=== PATIENT | male | born 1955 | race Caucasian/White ===

== ENCOUNTER → 2018-08-02 | Outpatient (CLI) | payer MEDICARE ==
[2018-08-02 17:35] LABS: Blood Urea Nitrogen 19 mg/dL (9-20)
--- NOTE | 2018-08-02 22:44 | CT ---
EXAMINATION TYPE: CT ChestAbdPelvis w con DATE OF EXAM: 08/02/2018 COMPARISON: Outside MRI abdomen report July 18, 2018 HISTORY: Right sided abdomen and back pain. Liver cancer, observe for metastases per order. History o f hepatitis C. History of abnormal MRI. CT DLP: 869 mGycm. Automated Exposure Control. For Dose Reduction was Utilized. CONTRAST: CT scan of the thorax, abdomen and pelvis is performed with oral and with IV Contrast, patient inject ed with 100ml mL of Isovue 300. FINDINGS: LUNGS: There is mild to moderate underlying emphysematous change. No suspicious parenchymal nodule or mass is present. No pleural effusion or pneumothorax is seen. Tracheobronchial tree is patent. MEDIASTINUM: There are no greater than 1 cm hilar or mediastinal lymph nodes. No cardiomegaly or pe ricardial effusion is seen. Coronary artery calcification is present which is noted marker for coron shandra artery disease. OTHER: Mild degree of bilateral gynecomastia is identified. LIVER/GB: Liver is normal in size, there are numerous scattered heterogeneous enhancing masses that d emonstrate washout. Largest in caudate lobe measures roughly 5.2 x 4.9 cm axial image 59. There are s uspected abnormal superior lymph nodes in the zain hepatis with mass effect on the splenic vein whic h is deviated anteriorly. There is suspected thrombus at the portal confluence as there is persistent hypodensity axial image 58 noted on delayed images. PANCREAS: No significant abnormality is seen. SPLEEN: Spleen is normal in size with anterior calcification axial image 55 noted. ADRENALS: No significant abnormality is seen. KIDNEYS: No significant abnormality is seen. BOWEL: The contrast does not reach colonic level. There is no suspicious small or large bowel dilatat ion seen GENITAL ORGANS: No gross abnormality seen. LYMPH NODES: There is abnormal retroperitoneal adenopathy. For reference there is aortocaval lymph no de measuring 3.5 x 3.1 cm axial image 66 just below level of renal arteries OSSEOUS STRUCTURES: Slight S-shaped scoliosis is seen. Osseous structures are demineralized. There is multilevel disc space narrowing and vacuum disc phenomenon in the lumbar spine. OTHER: Mild to moderate calcified plaque of distal abdominal aorta extending into branch vessels is p resent. IMPRESSION: Suspect multifocal hepatocellular carcinoma as suspected on outside MRI report. There is zain hepatic adenopathy and large retroperitoneal lymph node. There is confirmation of thrombus in p ortal vein confluence. Metastatic disease felt less likely as detailed on outside report. Imaging ariana ded sampling of the liver can be performed to confirm if desired.
== END | disposition home or self-care (01) ==
LOC: RADCTMAIN 16:41
PROVIDERS: ATTEND Internal Medicine Hematology & Oncology
DX: I81 Portal vein thrombosis (principal); R59.0 Localized enlarged lymph nodes; C22.0 Liver cell carcinoma
CPT/HCPCS: 82565; 84520; 71260; 74177; 36415; Q9967

== ENCOUNTER 2018-08-14 07:42 | Day surgery (SDC) | payer MEDICARE ==
[2018-08-14] MEDS ORDERED: ALPRAZolam 0.5 MG TAB PO STA (08:21)
[2018-08-14 08:46] LABS: Mean Platelet Volume 7.4; Platelet Count 195 k/uL (150-450)
[2018-08-14 09:06] LABS: INR 1.1 (<1.2); Prothrombin Time 11.1 sec (9.0-12.0)
--- NOTE | 2018-08-14 09:20 | US ---
Ultrasound limited liver HISTORY: Abnormal CT Liver is diffusely heterogeneous. There is a focal mass in the left lobe of the liver but there appea rs to be bowel anterior to this lesion. Patient will be taken to CT scan for biopsy of the right lobe liver mass which is not as well defined by ultrasound. IMPRESSION: 1. Limited ultrasound demonstrating diffuse heterogeneity of the liver. Patient will undergo biopsy w ith CT guidance.
[2018-08-14] MEDS: HYDROmorphone 1 MG/ML 1 ML SYRINGE IVP STA ×2 (09:29→09:54)
[2018-08-14 10:29] VITALS: RESP 16
--- NOTE | 2018-08-14 12:29 | CT ---
EXAMINATION TYPE: CT biopsy liver DATE OF EXAM: 08/14/2018 COMPARISON: CT 08/02/2018 HISTORY: Numerous liver masses CT DLP: 929mGycm PROCEDURE: The risks, applications, benefits and alternatives, were discussed with the patient and questions wer e answered. Informed consent was obtained. The patient was placed supine on the fluoroscopic table, prepped and draped in the usual sterile fashion. A 25-gauge system was utilized with direct passage of the needle into the right lobe liver lesion und er CT guidance. Samples were obtained with fine needle aspiration. Pathology confirmed adequate french ple. Additionally, an 18-gauge core sample was obtained. The patient was stable throughout procedure and remained stable upon discharge from radiology. All e lements of maximal barrier and sterile technique were utilized. IMPRESSION: 1. Successful right lobe liver mass fine needle aspiration and core biopsy under CT guidance.
[2018-08-14 13:39] VITALS: BP 139/84; PULSE 89; TEMP 98.2
== END 2018-08-14 14:00 | disposition home or self-care (01) ==
LOC: RADPROMAIN 07:42
PROVIDERS: ATTEND Internal Medicine Hematology & Oncology
DX: C22.0 Liver cell carcinoma (principal)
CPT/HCPCS: 88305; 88173; 85049; 85610; 88342; 88307; 88341; 36415; 76705; 47000; 77012; J1170; 10022

== ENCOUNTER 2018-09-05 14:19 | Inpatient (IN) | payer MEDICARE ==
[2018-09-05] MEDS ORDERED: LABETALOL 5 MG/ML VIAL MDV IVP STA ×2 (15:05→16:39)
--- NOTE | 2018-09-05 15:12 | ED ---
General Adult HPI - General Chief complaint: Recheck/Abnormal Lab/Rx Stated complaint: Hypertensive Time Seen by Provider: 09/05/18 14:36 Source: patient, family, RN notes reviewed Mode of arrival: ambulatory Limitations: no limitations - History of Present Illness Initial comments: Patient is a pleasant 63-year-old male presenting to the emergency department with hypertension. Patient does have chronic hypertension. Patient was started on medication for hepatocellular carcinoma a couple of weeks ago. Patient's blood pressure generally will run around 180/90. Blood pressure has been running high the last couple of weeks. Patient had his Cozaar increased from 50 mg daily to 100 mg daily. Blood pressure at home has been running as high as 200/120. They did discuss this with practitioner with oncology who recommended they come to emergency department for blood pressure control. Patient otherwise feels fine and has no complaints. No chest pain. No weakness. No abdominal pain. - Related Data Home Medications Medication Instructions Recorded Confirmed Ranitidine HCl 150 mg PO BID 08/08/18 09/05/18 HYDROmorphone [Dilaudid] 2 mg PO Q3H PRN 09/05/18 09/05/18 Lenvatinib Mesylate [Lenvima] 16 mg PO HS 09/05/18 09/05/18 Losartan Potassium [Cozaar] 100 mg PO DAILY 09/05/18 09/05/18 Morphine Sulfate ER [Ms Contin] 15 mg PO Q12HR PRN 09/05/18 09/05/18 Prochlorperazine [Compazine] 10 mg PO Q6H PRN 09/05/18 09/05/18 Sennosides [Senna] 25.8 mg PO HS 09/05/18 09/05/18 Allergies Allergy/AdvReac Type Severity Reaction Status Date / Time acetaminophen AdvReac Unknown Verified 09/05/18 14:52 Review of Systems ROS Statement: Those systems with pertinent positive or pertinent negative responses have been documented in the HPI. ROS Other: All systems not noted in ROS Statement are negative. Constitutional: Denies: fever Eyes: Denies: eye pain ENT: Denies: ear pain Respiratory: Denies: cough Cardiovascular: Denies: chest pain Endocrine: Denies: fatigue Gastrointestinal: Denies: abdominal pain Genitourinary: Denies: dysuria Musculoskeletal: Denies: back pain Skin: Denies: rash Neurological: Denies: headache, weakness, confusion Past Medical History Past Medical History: GERD/Reflux, Hypertension Additional Past Medical History / Comment(s): broke back and neck in 2002 - chronic pain History of Any Multi-Drug Resistant Organisms: None Reported Past Surgical History: Back Surgery Additional Past Surgical History / Comment(s): colonoscopy/endoscoopy - 2005, neck surgery 2002 Past Anesthesia/Blood Transfusion Reactions: No Reported Reaction Past Psychological History: No Psychological Hx Reported Smoking Status: Former smoker Past Alcohol Use History: Abuse - Past Family History Mother Family Medical History: Cancer Additional Family Medical History / Comment(s): multiple myloma General Exam Limitations: no limitations General appearance: alert, in no apparent distress Head exam: Present: atraumatic Eye exam: Present: normal appearance, PERRL, EOMI. Absent: nystagmus ENT exam: Present: normal oropharynx Neck exam: Present: normal inspection Respiratory exam: Present: normal lung sounds bilaterally Cardiovascular Exam: Present: regular rate, normal rhythm Expanded Peripheral pulses: 2+: Radial (R), Radial (L) GI/Abdominal exam: Present: soft. Absent: tenderness Extremities exam: Present: normal inspection. Absent: pedal edema, calf tenderness Neurological exam: Present: alert, CN II-XII intact. Absent: motor sensory deficit Expanded Neurological exam: Present: protecting the airway Speech: Present: fluid speech Sensory exam: Upper Extremity Light Touch: Normal, Lower Extremity Light Touch: Normal Motor strength exam: RUE: 5, LUE: 5, RLE: 5, LLE: 5 Eye Response: (4) open spontaneously Motor Response: (6) obeys commands Verbal Response: (5) oriented Psychiatric exam: Present: normal affect, normal mood Skin exam: Present: normal color Course Vital Signs 09/05/18 09/05/18 09/05/18 14:24 15:07 15:10 Temperature 97.4 F L Pulse Rate 89 81 Respiratory 18 9 L Rate Blood Pressure 196/119 189/110 O2 Sat by Pulse 97 95 98 Oximetry 09/05/18 09/05/18 09/05/18 16:10 16:20 16:30 Temperature Pulse Rate 72 74 Respiratory 17 18 Rate Blood Pressure 192/114 190/108 186/111 O2 Sat by Pulse 96 97 Oximetry 10/17/18 10/17/18 10/17/18 16:40 16:50 17:00 Temperature Pulse Rate 76 72 77 Respiratory 13 18 10 L Rate Blood Pressure 205/145 195/111 188/168 O2 Sat by Pulse 98 96 98 Oximetry 09/05/18 09/05/18 09/05/18 17:10 17:20 17:30 Temperature Pulse Rate 73 74 Respiratory 14 17 Rate Blood Pressure 188/106 200/111 182/105 O2 Sat by Pulse 98 97 Oximetry 09/05/18 09/05/18 09/05/18 18:00 18:30 19:00 Temperature Pulse Rate 73 73 84 Respiratory 17 18 18 Rate Blood Pressure 175/106 150/99 160/91 O2 Sat by Pulse 96 96 96 Oximetry - Reevaluation(s) Reevaluation #1: 09/05/18 20:04 Patient reevaluated and remained symptom-free. Blood pressure has been labile. Despite several medications blood pressure is currently 192/106. Case was discussed earlier with Dr. Morales, who will admit for Dr. Posadas. EKG Findings - EKG Comments: EKG Findings:: Normal sinus rhythm 74. NH 150. QRS 76. QT 376. QTc 417. Left axis. LVH criteria. No acute ST change. Medical Decision Making - Lab Data Result diagrams: 09/05/18 15:12 09/05/18 15:12 Lab Results 09/05/18 09/05/18 09/05/18 Range/Units 15:12 15:12 15:12 WBC 4.9 (3.8-10.6) k/uL RBC 5.64 (4.30-5.90) m/uL Hgb 17.2 (13.0-17.5) gm/dL Hct 52.7 (39.0-53.0) % MCV 93.4 (80.0-100.0) fL MCH 30.5 (25.0-35.0) pg MCHC 32.7 (31.0-37.0) g/dL RDW 13.1 (11.5-15.5) % Plt Count 161 (150-450) k/uL Neutrophils % 74 % Lymphocytes % 17 % Monocytes % 6 % Eosinophils % 2 % Basophils % 0 % Neutrophils # 3.6 (1.3-7.7) k/uL Lymphocytes # 0.8 L (1.0-4.8) k/uL Monocytes # 0.3 (0-1.0) k/uL Eosinophils # 0.1 (0-0.7) k/uL Basophils # 0.0 (0-0.2) k/uL PT 10.8 (9.0-12.0) sec INR 1.1 (<1.2) APTT 24.6 (22.0-30.0) sec Sodium 140 (137-145) mmol/L Potassium 4.6 (3.5-5.1) mmol/L Chloride 102 (98-107) mmol/L Carbon Dioxide 27 (22-30) mmol/L Anion Gap 11 mmol/L BUN 17 (9-20) mg/dL Creatinine 0.79 (0.66-1.25) mg/dL Est GFR (CKD-EPI)AfAm >90 (>60 ml/min/1.73 sqM) Est GFR (CKD-EPI)NonAf >90 (>60 ml/min/1.73 sqM) Glucose 95 (74-99) mg/dL Calcium 9.9 (8.4-10.2) mg/dL Magnesium 1.9 (1.6-2.3) mg/dL Total Bilirubin 0.6 (0.2-1.3) mg/dL AST 170 H (17-59) U/L ALT 97 H (21-72) U/L Alkaline Phosphatase 182 H (38-126) U/L Total Protein 7.2 (6.3-8.2) g/dL Albumin 3.8 (3.5-5.0) g/dL TSH 1.700 (0.465-4.680) mIU/L Free T4 1.27 (0.78-2.19) ng/dL Free T3 pg/mL 2.2 L (2.8-5.3) pg/ml Disposition Clinical Impression: Hypertensive urgency, Hepatocellular carcinoma Disposition: ADMITTED IP TO THIS HOSP Is patient prescribed a controlled substance at d/c from ED?: No Referrals: Blaire Posadas DO [Primary Care Provider] - 1-2 days Decision Time: 20:07
[2018-09-05 15:25] LABS: Basophils % (A) 0 %; Eosinophils # (A) 0.1 k/uL (0-0.7); Eosinophils % (A) 2 %; HCT 52.7 % (39.0-53.0); HGB 17.2 gm/dL (13.0-17.5); Lymphocytes # (A) 0.8 k/uL (1.0-4.8); Lymphocytes % (A) 17 %; MCH 30.5 pg (25.0-35.0); MCHC 32.7 g/dL (31.0-37.0); MCV 93.4 fL (80.0-100.0); Mean Platelet Volume 7.5; Monocytes # (A) 0.3 k/uL (0-1.0); Monocytes % (A) 6 %; Neutrophils # (A) 3.6 k/uL (1.3-7.7); Neutrophils % (A) 74 %; Platelet Count 161 k/uL (150-450); RBC 5.64 m/uL (4.30-5.90); RDW 13.1 % (11.5-15.5); WBC 4.9 k/uL (3.8-10.6)
[2018-09-05 15:34] LABS: ALT 97 U/L (21-72); AST 170 U/L (17-59); Albumin 3.8 g/dL (3.5-5.0); Alkaline Phosphatase 182 U/L (38-126); Anion Gap 11 mmol/L; Blood Urea Nitrogen 17 mg/dL (9-20); Calcium 9.9 mg/dL (8.4-10.2); Carbon Dioxide 27 mmol/L (22-30); Chloride 102 mmol/L (98-107); Glucose 95 mg/dL (74-99); Magnesium 1.9 mg/dL (1.6-2.3); Potassium 4.6 mmol/L (3.5-5.1); Sodium 140 mmol/L (137-145); Total Bilirubin 0.6 mg/dL (0.2-1.3); Total Protein 7.2 g/dL (6.3-8.2)
[2018-09-05 15:37] LABS: INR 1.1 (<1.2); Prothrombin Time 10.8 sec (9.0-12.0)
[2018-09-05 15:38] LABS: Partial Thromboplastin Time 24.6 sec (22.0-30.0)
[2018-09-05 15:51] LABS: T4, Free (Free Thyroxine) 1.27 ng/dL (0.78-2.19)
--- NOTE | 2018-09-05 16:36 | XR ---
EXAMINATION TYPE: XR chest 2V DATE OF EXAM: 09/05/2018 COMPARISON: NONE HISTORY: Hypertension TECHNIQUE: Frontal and lateral views of the chest are obtained. FINDINGS: Heart and mediastinum are normal. Lungs are clear of consolidation. There is no pleural ef fusion. There is slight coarsening of interstitial markings. IMPRESSION: Mild pulmonary fibrosis. No active cardiopulmonary disease.
[2018-09-05] MEDS ORDERED: hydrALAZINE HCL 20 MG/ML 1 ML VIAL IVP STA ×2 (17:35→20:07)
[2018-09-05] MEDS ORDERED: MORPHINE SULFATE 2 MG/ML SYRINGE IVP STA (19:32)
[2018-09-05] MEDS ORDERED: NALOXONE 0.4 MG/ML 1 ML VIAL IV PRN (20:08)
[2018-09-05] MEDS ORDERED: HYDROmorphone 2 MG TAB PO PRN (20:11)
[2018-09-05] MEDS ORDERED: amLODIPine 5 MG TAB PO STA (20:11)
[2018-09-05] MEDS ORDERED: PROCHLORPERAZINE 10 MG TAB PO PRN (20:11)
[2018-09-05] MEDS ORDERED: SODIUM CHLORIDE 0.9% 1,000 ML IV SCH (20:15)
[2018-09-05] MEDS: SENNOSIDES 8.6 MG TAB PO SCH (22:21)
[2018-09-05] MEDS: FAMOTIDINE 20 MG TAB PO SCH (22:21)
[2018-09-05] MEDS: MORPHINE SULFATE ER 15 MG TABLET PO PRN (22:21)
[2018-09-05 22:50] VITALS: BMI 20.1
[2018-09-05] MEDS: LENVATINIB PO SCH (23:03)
[2018-09-06] MEDS: amLODIPine 5 MG TAB PO SCH (08:41)
[2018-09-06] MEDS: FAMOTIDINE 20 MG TAB PO SCH (08:41)
[2018-09-06] MEDS: LOSARTAN 50 MG TAB PO SCH (08:41)
[2018-09-06] MEDS: MORPHINE SULFATE ER 15 MG TABLET PO PRN (09:29)
[2018-09-06] MEDS: hydrALAZINE HCL 20 MG/ML 1 ML VIAL IVP PRN (10:01)
[2018-09-06] MEDS: HYDROCHLOROTHIAZIDE 12.5 MG CAP PO SCH ×2 (11:09→12:28)
[2018-09-06] MEDS: ONDANSETRON 4 MG/2 ML VIAL IVP PRN ×3 (11:10→20:18)
[2018-09-06] MEDS: MORPHINE SULFATE 4 MG/ML SYRINGE IV PRN ×3 (12:32→20:18)
[2018-09-06] MEDS ORDERED: FAMOTIDINE 20 MG/2 ML VIAL IV SCH (13:15)
[2018-09-06] MEDS ORDERED: cloNIDine 0.1 MG/24HR PATCH TRANSDERM SCH (13:15)
[2018-09-06] MEDS ORDERED: PROCHLORPERAZINE SUPPOSITORY 25 MG SUPP RECTAL PRN (13:18)
--- NOTE | 2018-09-06 13:19 | P.CONS ---
History of Present Illness - Reason for Consult Consult date: 09/06/18 Abdominal pain Requesting physician: Mikie Fuentes - Chief Complaint nausea vomiting back pain elevated blood pressure - History of Present Illness 63-year-old male with a long-standing history of chronic hepatitis C status post treatment a year ago due, new diagnosis of hepatocellular carcinoma one month ago maintained on Lenvima, hypertension, presents with intractable nausea vomiting back pain elevated blood pressures. Consultation requested for abdominal pain. Presently patient denies abdominal pain he's reporting mid to lower back pain. Multiple episodes of nonbloody emesis. Blood pressures have been elevated systolic 195/109. White count 4.9. Hemoglobin 17.2. BUN 17. Creatinine 0.7. Total bilirubin 0.6. AST 170. ALT 97. AP 182. Denies fever chills hematemesis hematochezia melena. Patient is unsure if his symptoms are related to his new chemotherapy medication or not. Review of Systems Constitutional: Denies fever, chills, sweats, weight gain, or loss. HEENT: Negative for migraines, blurred vision or loss, earaches, drainage, tinnitus, oral mucosal lesions, dysphagia, or odynophagia. Cardiac: Negative for chest pain, arrhythmias, or palpitation. Respiratory: Negative for shortness of breath, hemoptysis, cough, or sputum production. Gastrointestinal: See HPI for pertinent findings. Genitourinary: Negative for hematuria, urgency, frequency, polyuria, dysuria, or penile discharge. Musculoskeletal: Negative for muscle aches, swelling, arthritis, and arthralgias. Neurologic: Negative for stroke or TIA. Endocrine: Negative for thyroid problems. Skin: Negative for rash or itching. Psychiatric: Negative history for depression and anxiety Past Medical History Past Medical History: GERD/Reflux, Hypertension Additional Past Medical History / Comment(s): broke back and neck in 2002 - chronic pain History of Any Multi-Drug Resistant Organisms: None Reported Past Surgical History: Back Surgery Additional Past Surgical History / Comment(s): colonoscopy/endoscoopy - 2005, neck surgery 2002 Past Anesthesia/Blood Transfusion Reactions: No Reported Reaction Past Psychological History: No Psychological Hx Reported Smoking Status: Former smoker Past Alcohol Use History: Abuse Additional Past Alcohol Use History / Comment(s): quit drinking 1985 - Past Family History Mother Family Medical History: Cancer Additional Family Medical History / Comment(s): multiple myloma Medications and Allergies Home Medications Medication Instructions Recorded Confirmed Type Ranitidine HCl 150 mg PO BID 08/08/18 09/05/18 History HYDROmorphone [Dilaudid] 2 mg PO Q3H PRN 09/05/18 09/05/18 History Lenvatinib Mesylate [Lenvima] 16 mg PO HS 09/05/18 09/05/18 History Losartan Potassium [Cozaar] 100 mg PO DAILY 09/05/18 09/05/18 History Morphine Sulfate ER [Ms Contin] 15 mg PO Q12HR PRN 09/05/18 09/05/18 History Prochlorperazine [Compazine] 10 mg PO Q6H PRN 09/05/18 09/05/18 History Sennosides [Senna] 25.8 mg PO HS 09/05/18 09/05/18 History Allergies Allergy/AdvReac Type Severity Reaction Status Date / Time acetaminophen AdvReac Unknown Verified 09/05/18 14:52 Physical Exam Vitals: Vital Signs Temp Pulse Pulse Resp BP BP Pulse Ox 09/06/18 12:18 98.1 F 81 18 169/86 97 09/06/18 11:16 175/94 09/06/18 09:30 195/109 09/06/18 04:15 98.4 F 90 18 175/81 97 09/06/18 00:00 89 18 09/05/18 23:55 138/76 09/05/18 21:55 98.3 F 89 18 177/95 95 09/05/18 20:30 99.2 F 93 18 164/101 96 09/05/18 20:24 99.2 F 86 18 164/101 96 09/05/18 20:00 90 19 188/103 96 09/05/18 19:30 87 17 173/97 96 09/05/18 19:00 84 18 160/91 96 09/05/18 18:30 73 18 150/99 96 09/05/18 18:00 73 17 175/106 96 09/05/18 17:30 74 17 182/105 97 09/05/18 17:20 73 14 200/111 98 09/05/18 17:10 188/106 09/05/18 17:00 77 10 L 188/168 98 09/05/18 16:50 72 18 195/111 96 09/05/18 16:40 76 13 205/145 98 09/05/18 16:30 186/111 09/05/18 16:20 74 18 190/108 97 09/05/18 16:10 72 17 192/114 96 09/05/18 15:10 81 9 L 189/110 98 09/05/18 15:07 95 09/05/18 14:24 97.4 F L 89 18 196/119 97 Intake and Output 09/05/18 09/06/18 09/06/18 22:59 06:59 14:59 Intake Total 540 100 240 Balance 540 100 240 Intake: IV 120 100 240 Sodium Chloride 0.9% 1, 120 100 240 000 ml @ 20 mls/hr IV . Q24H [facility] Rx#:[id number] Oral 420 Other: Voiding Method Toilet # Voids 2 Weight 56.69 kg 56.69 kg Results CBC & Chem 7: 09/05/18 15:12 09/05/18 15:12 Labs: Abnormal Lab Results - Last 24 Hours (Table) 09/05/18 09/05/18 Range/Units 15:12 15:12 Lymphocytes # 0.8 L (1.0-4.8) k/uL AST 170 H (17-59) U/L ALT 97 H (21-72) U/L Alkaline Phosphatase 182 H (38-126) U/L Free T3 pg/mL 2.2 L (2.8-5.3) pg/ml Assessment and Plan (1) Nausea & vomiting Narrative/Plan: 63-year-old gentleman history of hepatitis C status post antiviral therapy recently diagnosed with hepatocellular carcinoma maintained on oral chemotherapy presents with intractable nausea vomiting elevated blood pressures and back pain presently without abdominal pain. Symptoms could be related to hypertensive urgency. Current Visit: Yes Status: Acute Code(s): R11.2 - NAUSEA WITH VOMITING, UNSPECIFIED SNOMED Code(s): 32473966 (2) Back pain Current Visit: Yes Status: Acute Code(s): M54.9 - DORSALGIA, UNSPECIFIED SNOMED Code(s): 524716305 (3) Hepatocellular carcinoma Current Visit: Yes Status: Acute Code(s): C22.0 - LIVER CELL CARCINOMA SNOMED Code(s): 236517241 (4) Hypertensive urgency Current Visit: Yes Status: Acute Code(s): I16.0 - HYPERTENSIVE URGENCY SNOMED Code(s): 792780608 (5) Elevated liver enzymes Narrative/Plan: Secondary to intrahepatic malignancy Current Visit: Yes Status: Acute Code(s): R74.8 - ABNORMAL LEVELS OF OTHER SERUM ENZYMES SNOMED Code(s): 424985916 Plan: 1. Blood pressure control. 2. Compazine suppository 25 mg twice daily as needed for nausea. 3. Nothing by mouth except medications ice chips and popsicles as tolerated until nausea vomiting improves. 4. Two-view of the abdomen. Thank you for this kind referral and the opportunity to participate in the care of your patient. This consultation was discussed with Dr. Mark. The impression and plan of care have been directed as dictated.
[2018-09-06] MEDS: PANTOPRAZOLE 40 MG/10 ML VIAL IVP SCH (13:42)
--- NOTE | 2018-09-06 14:28 | P.CRDCN ---
History of Present Illness History of present illness: Mr. Stratton is a pleasant 63-year-old male past medical history significant for hypertension, gastroesophageal reflux disease, hepatic carcinoma , chronic hepatitis C and former nicotine dependence. He denies history of coronary artery disease and has never seen a disease education specialist for any reason. Per his family they were at [facility] yesterday for an infusion and his blood pressure was elevated over 190 systolic. On arrival to ED 196/119. At home he takes losartan 100 mg daily. He states he has been vomiting intractably lately and unable to tolerate any oral intake. He denies chest pain, shortness of breath, palpitations or dizziness. He is currently complaining of severe headache with ongoing nausea and vomiting. Amlodipine 5 mg daily has been added since admission however he is vomiting every time he takes a pill. EKG reveals sinus mechanism with no acute ST or T-wave abnormalities. Chest x-ray indicates signs of mild pulmonary fibrosis with no acute cardiopulmonary process. Laboratory data reviewed, hemoglobin 17.2, platelets 161, WBC 4.9, sodium 140, potassium 4.6, creatinine 0.79, magnesium 1.9, TSH 1.7, AST 170 and ALT 97. At the time of my exam: CONSTITUTIONAL: Denies fever. Denies chills. EYES: Denies blurred vision. Denies vision changes. Denies eye pain. EARS, NOSE, MOUTH & THROAT: Denies headache. Denies sore throat. Denies ear pain. CARDIOVASCULAR: Denies chest pain. Denies shortness of breath. Denies orthopnea. Denies PND. Denies palpitations. RESPIRATORY: Denies cough. GASTROINTESTINAL: Denies abdominal pain. Denies diarrhea. Denies constipation. Denies nausea. Denies vomiting. MUSCULOSKELETAL: Denies myalgias. INTEGUMENTARY: Denies pruitis. Denies rash. NEUROLOGIC: Denies numbness. Denies tingling. Denies weakness. PSYCHIATRIC: Denies anxiety. Denies depression. ENDOCRINE: Denies fatigue. Denies weight change. Denies polydipsia. Denies polyurina. GENITOURINARY: Denies burning, hematuria or urgency with micturation. HEMATOLOGIC: Denies history of anemia. Denies bleeding. Blood pressure 169/86 heart rate 81 afebrile maintaining oxygen saturation on room air GENERAL: This is a 63-year-old male in no apparent distress at the time of my examination. HEENT: Head is atraumatic, normocephalic. Pupils are equal, round. Sclerae anicteric. Conjunctivae are clear. Mucous membranes of the mouth are moist. Neck is supple. There is no jugular venous distention. No carotid bruit is heard. LUNGS: Clear to auscultation no wheezes, rales or rhonchi. No chest wall tenderness is noted on palpation or with deep breathing. HEART: Regular rate and rhythm without murmurs, rubs or gallops. S1 and S2 heard. ABDOMEN: Soft, nontender. Bowel sounds are heard. No organomegaly noted. EXTREMITIES: No evidence of peripheral edema and no calf tenderness noted. VASCULAR: Radial and dorsalis pedis pulses palpated, no evidence of clubbing. NEUROLOGIC: Patient is awake, alert and oriented x3. ASSESSMENT Hypertensive urgency in presence of vomiting and not tolerating PO intake Hepatic carcinoma with elevated liver enzymes Intractable nausea and vomiting PLAN Recommend use of clonidine patch temporarily while he is vomiting. Ongoing medical management. Thank you kindly for this consultation. Nurse Practitioner note has been reviewed, I agree with a documented findings and plan of care. Patient was seen and examined. Past Medical History Past Medical History: GERD/Reflux, Hypertension Additional Past Medical History / Comment(s): broke back and neck in 2002 - chronic pain History of Any Multi-Drug Resistant Organisms: None Reported Past Surgical History: Back Surgery Additional Past Surgical History / Comment(s): colonoscopy/endoscoopy - 2005, neck surgery 2002 Past Anesthesia/Blood Transfusion Reactions: No Reported Reaction Past Psychological History: No Psychological Hx Reported Smoking Status: Former smoker Past Alcohol Use History: Abuse Additional Past Alcohol Use History / Comment(s): quit drinking 1985 - Past Family History Mother Family Medical History: Cancer Additional Family Medical History / Comment(s): multiple myloma Medications and Allergies Home Medications Medication Instructions Recorded Confirmed Type Ranitidine HCl 150 mg PO BID 08/08/18 09/05/18 History HYDROmorphone [Dilaudid] 2 mg PO Q3H PRN 09/05/18 09/05/18 History Lenvatinib Mesylate [Lenvima] 16 mg PO HS 09/05/18 09/05/18 History Losartan Potassium [Cozaar] 100 mg PO DAILY 09/05/18 09/05/18 History Morphine Sulfate ER [Ms Contin] 15 mg PO Q12HR PRN 09/05/18 09/05/18 History Prochlorperazine [Compazine] 10 mg PO Q6H PRN 09/05/18 09/05/18 History Sennosides [Senna] 25.8 mg PO HS 09/05/18 09/05/18 History Allergies Allergy/AdvReac Type Severity Reaction Status Date / Time acetaminophen AdvReac Unknown Verified 09/05/18 14:52 Physical Exam Vitals: Vital Signs Temp Pulse Pulse Resp BP BP Pulse Ox 09/06/18 12:18 98.1 F 81 18 169/86 97 09/06/18 11:16 175/94 09/06/18 09:30 195/109 09/06/18 04:15 98.4 F 90 18 175/81 97 09/06/18 00:00 89 18 09/05/18 23:55 138/76 09/05/18 21:55 98.3 F 89 18 177/95 95 09/05/18 20:30 99.2 F 93 18 164/101 96 09/05/18 20:24 99.2 F 86 18 164/101 96 09/05/18 20:00 90 19 188/103 96 09/05/18 19:30 87 17 173/97 96 09/05/18 19:00 84 18 160/91 96 09/05/18 18:30 73 18 150/99 96 09/05/18 18:00 73 17 175/106 96 09/05/18 17:30 74 17 182/105 97 09/05/18 17:20 73 14 200/111 98 09/05/18 17:10 188/106 09/05/18 17:00 77 10 L 188/168 98 09/05/18 16:50 72 18 195/111 96 09/05/18 16:40 76 13 205/145 98 09/05/18 16:30 186/111 09/05/18 16:20 74 18 190/108 97 09/05/18 16:10 72 17 192/114 96 09/05/18 15:10 81 9 L 189/110 98 09/05/18 15:07 95 09/05/18 14:24 97.4 F L 89 18 196/119 97 Intake and Output 09/05/18 09/06/18 09/06/18 22:59 06:59 14:59 Intake Total 540 100 240 Balance 540 100 240 Intake: IV 120 100 240 Sodium Chloride 0.9% 1, 120 100 240 000 ml @ 20 mls/hr IV . Q24H [facility] Rx#:[id number] Oral 420 Other: Voiding Method Toilet # Voids 2 Weight 56.69 kg 56.69 kg Results 09/05/18 15:12 09/05/18 15:12 Cardiac Enzymes 09/05/18 Range/Units 15:12 AST 170 H (17-59) U/L Coagulation 09/05/18 Range/Units 15:12 PT 10.8 (9.0-12.0) sec APTT 24.6 (22.0-30.0) sec CBC 09/05/18 Range/Units 15:12 WBC 4.9 (3.8-10.6) k/uL RBC 5.64 (4.30-5.90) m/uL Hgb 17.2 (13.0-17.5) gm/dL Hct 52.7 (39.0-53.0) % Plt Count 161 (150-450) k/uL Comprehensive Metabolic Panel 09/05/18 Range/Units 15:12 Sodium 140 (137-145) mmol/L Potassium 4.6 (3.5-5.1) mmol/L Chloride 102 (98-107) mmol/L Carbon Dioxide 27 (22-30) mmol/L BUN 17 (9-20) mg/dL Creatinine 0.79 (0.66-1.25) mg/dL Glucose 95 (74-99) mg/dL Calcium 9.9 (8.4-10.2) mg/dL AST 170 H (17-59) U/L ALT 97 H (21-72) U/L Alkaline Phosphatase 182 H (38-126) U/L Total Protein 7.2 (6.3-8.2) g/dL Albumin 3.8 (3.5-5.0) g/dL Current Medications Generic Name Dose Route Start Last Admin Trade Name Freq PRN Reason Stop Dose Admin Amlodipine Besylate 5 mg 09/06/18 09:00 09/06/18 08:41 Norvasc PO 5 mg DAILY [facility] Administration Clonidine HCl 1 patch 09/06/18 13:15 09/06/18 13:42 Catapres-Tts 0.1mg Patch TRANSDERM 1 patch Q7D [facility] Administration Heparin Sodium (Porcine) 5,000 unit 09/06/18 16:00 Heparin SQ Q8HR [facility] Hydralazine HCl 10 mg 09/05/18 20:11 09/06/18 10:01 Apresoline IVP 10 mg Q4HR PRN Administration Blood Pressure - High Hydrochlorothiazide 12.5 mg 09/06/18 10:30 09/06/18 12:28 Hydrodiuril PO Not Given DAILY [facility] Hydromorphone HCl 2 mg 09/05/18 20:11 Dilaudid PO Q3H PRN Pain Sodium Chloride 1,000 mls @ 20 mls/hr 09/05/18 20:15 09/05/18 20:18 Saline 0.9% IV 20 mls/hr .Q24H [facility] Administration Losartan Potassium 100 mg 09/06/18 09:00 09/06/18 08:41 Cozaar PO 100 mg DAILY [facility] Administration Morphine Sulfate 4 mg 09/05/18 20:08 09/06/18 12:32 Morphine Sulfate (Inj) IV 4 mg Q4HR PRN Administration Severe Pain Morphine Sulfate 15 mg 09/06/18 21:00 Ms Contin PO Q12HR [facility] Naloxone HCl 0.2 mg 09/05/18 20:08 Narcan IV Q2M PRN Opioid Reversal Lenvima 16mg 16 mg 09/05/18 21:00 09/05/18 23:03 PO Not Given HS [facility] Ondansetron HCl 4 mg 09/06/18 10:54 09/06/18 11:10 Zofran IVP 4 mg Q4HR PRN Administration Nausea And Vomiting Pantoprazole Sodium 40 mg 09/06/18 13:30 09/06/18 13:42 Protonix IVP 40 mg DAILY [facility] Administration Prochlorperazine Maleate 10 mg 09/05/18 20:11 Compazine PO Q6H PRN Nausea Prochlorperazine Maleate 25 mg 09/06/18 13:18 Compazine RECTAL BID PRN Nausea And Vomiting Senna 25.8 mg 09/05/18 21:00 09/05/18 22:21 Senokot PO 25.8 mg HS [facility] Administration Intake and Output 10/17/18 10/18/18 10/18/18 22:59 06:59 14:59 Intake Total 540 100 240 Balance 540 100 240 Intake: IV 120 100 240 Sodium Chloride 0.9% 1, 120 100 240 000 ml @ 20 mls/hr IV . Q24H [facility] Rx#:[id number] Oral 420 Other: Voiding Method Toilet # Voids 2 Weight 56.69 kg 56.69 kg Patient Weight 09/07/18 06:59 Weight 56.69 kg 09/05/18 15:12 09/05/18 15:12
--- NOTE | 2018-09-06 14:46 | XR ---
EXAMINATION TYPE: XR abdomen 2V DATE OF EXAM: 09/06/2018 COMPARISON: NONE HISTORY: Nausea and vomiting TECHNIQUE: One view abdominal series FINDINGS: The osseous structures are intact. The bowel gas pattern is nonspecific. Lung bases are clear. Dege nerative change of the spine with curvature noted. Calcification the pelvis may be vascular. IMPRESSION: 1. Nonspecific abdomen.
[2018-09-06] MEDS: HEPARIN SODIUM,PORCINE 5,000 UNIT/ML 1 ML VIAL SQ SCH ×2 (15:39→23:49)
[2018-09-06] MEDS: SODIUM CHLORIDE 0.9% 1,000 ML IV SCH (16:55)
--- NOTE | 2018-09-06 19:10 | P.CONS ---
History of Present Illness - Reason for Consult Consult date: 09/06/18 HCC on treatment Requesting physician: Huber Singletary - Chief Complaint hypertensive urgency - History of Present Illness Mr. Stratton is a pleasant causcian male pt of Dr. Caldwell who was worked up for progressive abdominal pain X 3-4 months, back pain X 1 month associated with intermittent anorexia but, no weight loss. Has known Hepatitis-C treated with Harvoni 2 years ago. MRI of liver revealed multiple large hepatic masses with retroperitoneal lymphadenopathy 07/18/18. EGD revealed severe esophagitis, colonoscopy was negative, liver biopsy revealed HCC, CT AP metastatic portohepatis and retroperitoneal lymphadenopathy. He started VEGF therapy with lenvatinib on 08/27. He presented for routine treatment f/u on 09/05 at which time BP was 190/118, he was sent to ER and is admitted with Cardiology consult. He has POWELL, nausea from POWELL, denies fever, vomiting, floaters, double or blurred vision, he is photosensitive, he felt he was tolerating lenvima otherwise, no SOB, cough, abd pain or bloating, acute changes in bowel or bladder habits. Review of Systems 14 point ROS is neg except as stated in HPI Past Medical History Past Medical History: Cancer, GERD/Reflux, Hypertension Additional Past Medical History / Comment(s): broke back and neck in 2002 - chronic pain History of Any Multi-Drug Resistant Organisms: None Reported Past Surgical History: Back Surgery Additional Past Surgical History / Comment(s): colonoscopy/endoscoopy - 2005, neck surgery 2002 Past Anesthesia/Blood Transfusion Reactions: No Reported Reaction Past Psychological History: No Psychological Hx Reported Smoking Status: Former smoker Past Alcohol Use History: Abuse Additional Past Alcohol Use History / Comment(s): quit drinking 1985 Past Drug Use History: Unable to Obtain - Past Family History Mother Family Medical History: Cancer Additional Family Medical History / Comment(s): multiple myloma Medications and Allergies Home Medications Medication Instructions Recorded Confirmed Type Ranitidine HCl 150 mg PO BID 08/08/18 09/05/18 History HYDROmorphone [Dilaudid] 2 mg PO Q3H PRN 09/05/18 09/05/18 History Lenvatinib Mesylate [Lenvima] 16 mg PO HS 09/05/18 09/05/18 History Losartan Potassium [Cozaar] 100 mg PO DAILY 09/05/18 09/05/18 History Morphine Sulfate ER [Ms Contin] 15 mg PO Q12HR PRN 09/05/18 09/05/18 History Prochlorperazine [Compazine] 10 mg PO Q6H PRN 09/05/18 09/05/18 History Sennosides [Senna] 25.8 mg PO HS 09/05/18 09/05/18 History Allergies Allergy/AdvReac Type Severity Reaction Status Date / Time acetaminophen AdvReac Unknown Verified 09/05/18 14:52 Physical Exam Vitals: Vital Signs Temp Pulse Pulse Resp BP BP Pulse Ox 09/06/18 16:19 77 154/80 09/06/18 12:18 98.1 F 81 18 169/86 97 09/06/18 11:16 175/94 09/06/18 09:30 195/109 09/06/18 04:15 98.4 F 90 18 175/81 97 09/06/18 00:00 89 18 09/05/18 23:55 138/76 09/05/18 21:55 98.3 F 89 18 177/95 95 09/05/18 20:30 99.2 F 93 18 164/101 96 09/05/18 20:24 99.2 F 86 18 164/101 96 09/05/18 20:00 90 19 188/103 96 09/05/18 19:30 87 17 173/97 96 09/05/18 19:00 84 18 160/91 96 Intake and Output 09/06/18 09/06/18 09/06/18 06:59 14:59 22:59 Intake Total 100 240 Balance 100 240 Intake: IV 100 240 Sodium Chloride 0.9% 1, 100 240 000 ml @ 20 mls/hr IV . Q24H [facility] Rx#:[id number] Other: Voiding Method Toilet # Voids 2 Weight 56.69 kg - Constitutional General appearance: average body habitus, mild distress - EENT Eyes: anicteric sclerae, EOMI ENT: normal oropharynx - Neck Neck: no lymphadenopathy - Respiratory Respiratory: bilateral: CTA - Cardiovascular Rhythm: regular Heart sounds: normal: S1, S2 Abnormal Heart Sounds: no systolic murmur, no diastolic murmur, no rub, no S3 Gallop, no S4 Gallop, no click, no other leg Peripheral Edema: bilateral: None - Gastrointestinal General gastrointestinal: no absent bowel sounds, no decreased bowel sounds, no distended, hepatomegaly, no hyperactive bowel sounds, normal bowel sounds, no organomegaly, no rigid, no scaphoid, soft, no splenomegaly, no tenderness, no umbilical hernia, no ventral hernia - Neurologic Neurologic: CNII-XII intact - Musculoskeletal Musculoskeletal: strength equal bilaterally - Psychiatric Psychiatric: A&O x's 3, appropriate affect, intact judgment & insight Results CBC & Chem 7: 09/05/18 15:12 09/05/18 15:12 Chest x-ray: report reviewed Abdominal x-ray: report reviewed Assessment and Plan (1) Hepatocellular carcinoma Narrative/Plan: Recent diagnosis, on oral lenvatinib about 10 days. This is VEGF inhibitor with HTN as s SE. Medication control of HTN and close monitoring can allow pt to stay on therapy. Cardiology consulted and we will defer for management Lenvima will be on hold until HTN managed Current Visit: Yes Status: Acute Priority: High Code(s): C22.0 - LIVER CELL CARCINOMA SNOMED Code(s): 473278961 (2) Hypertensive urgency Narrative/Plan: Cardiology consulted Current Visit: Yes Status: Acute Priority: High Code(s): I16.0 - HYPERTENSIVE URGENCY SNOMED Code(s): 571571309
[2018-09-06] MEDS: LENVATINIB PO SCH (19:54)
[2018-09-06] MEDS: SENNOSIDES 8.6 MG TAB PO SCH (19:59)
[2018-09-06] MEDS: MORPHINE SULFATE ER 15 MG TABLET PO SCH (19:59)
--- NOTE | 2018-09-06 22:34 | P.HPIM ---
History of Present Illness H&P Date: 09/06/18 Chief Complaint: Intractable nausea and vomiting. And hypertensive urgency Patient is a 63-year-old male with a known history of recently diagnosed hepatocellular carcinoma currently maintained on Lenvima, chronic hepatitis C status post treatment about a year back, hypertension, GERD and chronic pain presented to ER with complaints of intractable nausea vomiting headache and was found have hypertensive urgency. As per the patient blood pressure generally will run around 180/90. Blood pressure has been running high the last couple of weeks. Patient had his Cozaar increased from 50 mg daily to 100 mg daily. Blood pressure at home has been running as high as 200/120. They did discuss this with practitioner with oncology who recommended they come to emergency department for blood pressure control. Patient otherwise feels fine and has no complaints. No chest pain. No weakness. No abdominal pain. Patient does complain of back pain. No fever no chills. White count 4.9. Hemoglobin 17.2. BUN 17. Creatinine 0.7. Total bilirubin 0.6. AST 170. ALT 97. AP 182. Denies fever chills hematemesis hematochezia melena. Patient is unsure if his symptoms are related to his new chemotherapy medication or not. Review of Systems Constitutional: Patient denies any fever or chills . No generalized weakness or weight loss. Abdomen: Nausea and vomiting. No abdominal pain. No diarrhea.. Cardiovascular: Patient denies any chest pain or short of breath no palpitations. Respiratory: patient denied any cough is from production. No shortness of breath Neurologic: Patient denied any numbness or tingling. Patient does have headaches. Musculoskeletal: Patient denies any complaints of joint swelling or deformity. Skin: Negative Psychiatric: Negative Endocrine: No heat or cold intolerance. No recent weight gain. Genitourinary: No dysuria or hematuria. All other 14 point ROS negative except the above Past Medical History Past Medical History: GERD/Reflux, Hypertension Additional Past Medical History / Comment(s): broke back and neck in 2002 - chronic pain History of Any Multi-Drug Resistant Organisms: None Reported Past Surgical History: Back Surgery Additional Past Surgical History / Comment(s): colonoscopy/endoscoopy - 2005, neck surgery 2002 Past Anesthesia/Blood Transfusion Reactions: No Reported Reaction Past Psychological History: No Psychological Hx Reported Smoking Status: Former smoker Past Alcohol Use History: Abuse Additional Past Alcohol Use History / Comment(s): quit drinking 1986 - Past Family History Mother Family Medical History: Cancer Additional Family Medical History / Comment(s): multiple myloma Medications and Allergies Home Medications Medication Instructions Recorded Confirmed Type Ranitidine HCl 150 mg PO BID 08/08/18 09/05/18 History HYDROmorphone [Dilaudid] 2 mg PO Q3H PRN 09/05/18 09/05/18 History Lenvatinib Mesylate [Lenvima] 16 mg PO HS 09/05/18 09/05/18 History Losartan Potassium [Cozaar] 100 mg PO DAILY 09/05/18 09/05/18 History Morphine Sulfate ER [Ms Contin] 15 mg PO Q12HR PRN 09/05/18 09/05/18 History Prochlorperazine [Compazine] 10 mg PO Q6H PRN 09/05/18 09/05/18 History Sennosides [Senna] 25.8 mg PO HS 09/05/18 09/05/18 History Allergies Allergy/AdvReac Type Severity Reaction Status Date / Time acetaminophen AdvReac Unknown Verified 09/05/18 14:52 Physical Exam Vitals: Vital Signs Temp Pulse Pulse Resp BP BP Pulse Ox 09/06/18 12:18 98.1 F 81 18 169/86 97 09/06/18 11:16 175/94 09/06/18 09:30 195/109 09/06/18 04:15 98.4 F 90 18 175/81 97 09/06/18 00:00 89 18 09/05/18 23:55 138/76 09/05/18 21:55 98.3 F 89 18 177/95 95 09/05/18 20:30 99.2 F 93 18 164/101 96 09/05/18 20:24 99.2 F 86 18 164/101 96 09/05/18 20:00 90 19 188/103 96 09/05/18 19:30 87 17 173/97 96 09/05/18 19:00 84 18 160/91 96 09/05/18 18:30 73 18 150/99 96 09/05/18 18:00 73 17 175/106 96 09/05/18 17:30 74 17 182/105 97 09/05/18 17:20 73 14 200/111 98 09/05/18 17:10 188/106 1017/18 17:00 77 10 L 188/168 98 09/05/18 16:50 72 18 195/111 96 09/05/18 16:40 76 13 205/145 98 09/05/18 16:30 186/111 09/05/18 16:20 74 18 190/108 97 09/05/18 16:10 72 17 192/114 96 09/05/18 15:10 81 9 L 189/110 98 09/05/18 15:07 95 09/05/18 14:24 97.4 F L 89 18 196/119 97 Intake and Output 09/05/18 09/06/18 09/06/18 22:59 06:59 14:59 Intake Total 540 100 240 Balance 540 100 240 Intake: IV 120 100 240 Sodium Chloride 0.9% 1, 120 100 240 000 ml @ 20 mls/hr IV . Q24H [facility] Rx#:[id number] Oral 420 Other: Voiding Method Toilet # Voids 2 Weight 56.69 kg 56.69 kg PHYSICAL EXAMINATION: Patient is lying in the bed comfortably, mild distress, awake alert and oriented.. HEENT: Normocephalic. Neck is supple. Pupils reactive. Nostrils clear. Oral cavity is moist. Ears reveal no drainage. Neck reveals no JVD, carotid bruits, or thyromegaly. CHEST EXAMINATION: Trachea is central. Symmetrical expansion. Bibasilar diminished air entry.. CARDIAC: Normal S1, S2 with no gallops. No murmurs ABDOMEN: Soft. Bowel sounds normal. No organomegaly. No abdominal bruits. Extremities: reveal no edema. No clubbing or cyanosis Neurologically awake, alert, oriented x3 with well-coordinated movements. No focal deficits noted Skin: No rash or skin lesions. Psychiatric: Coperative. Nonsuicidal Musculoskeletal: No joint swelling or deformity. Normal range of motion. Results CBC & Chem 7: 09/05/18 15:12 09/05/18 15:12 Labs: Abnormal Lab Results - Last 24 Hours (Table) 09/05/18 09/05/18 Range/Units 15:12 15:12 Lymphocytes # 0.8 L (1.0-4.8) k/uL AST 170 H (17-59) U/L ALT 97 H (21-72) U/L Alkaline Phosphatase 182 H (38-126) U/L Free T3 pg/mL 2.2 L (2.8-5.3) pg/ml Thrombosis Risk Factor Assmnt - DVT/VTE Prophylaxis DVT/VTE Prophylaxis: Pharmacologic Prophylaxis ordered - Choose All That Apply Any of the Below Risk Factors Present?: No Other Risk Factors: Yes Each Risk Factor Represents 2 Points: Age 61-74 years, Malignancy Other congenital or acquired thrombophilia - If yes, enter type in comment: No Thrombosis Risk Factor Assessment Total Risk Factor Score: 4 Thrombosis Risk Factor Assessment Level: Moderate Risk Assessment and Plan Assessment: Intractable nausea and vomiting. Possibly related to chemotherapy Hypertensive urgency Chronic pain/back pain likely cancer related. Recently diagnosed hepatocellular cancer currently maintained on lenvima GERD DVT prophylaxis Plan: Patient will be continued on IV hydration. Symptomatic management for nausea and vomiting. Continue with IV Zantac and Zofran. Patient does take lisinopril at home and hydrochlorothiazide will be added. Catapres patch will be applied at 0.1 mg on telemetry tolerating oral diet. Continue the supportive management and further recommendations based on the clinical course. Anticipate discharge once the blood pressure is fairly controlled. Time with Patient: Greater than 30
[2018-09-07] MEDS: SODIUM CHLORIDE 0.9% 1,000 ML IV SCH ×3 (03:47→23:47)
[2018-09-07] MEDS: HYDROCHLOROTHIAZIDE 12.5 MG CAP PO SCH (08:14)
[2018-09-07] MEDS: amLODIPine 5 MG TAB PO SCH (08:14)
[2018-09-07] MEDS: HEPARIN SODIUM,PORCINE 5,000 UNIT/ML 1 ML VIAL SQ SCH ×3 (08:14→23:47)
[2018-09-07] MEDS: ONDANSETRON 4 MG/2 ML VIAL IVP PRN ×4 (08:14→21:00)
[2018-09-07] MEDS: LOSARTAN 50 MG TAB PO SCH (08:14)
[2018-09-07] MEDS: PANTOPRAZOLE 40 MG/10 ML VIAL IVP SCH (08:15)
[2018-09-07] MEDS: MORPHINE SULFATE ER 15 MG TABLET PO SCH ×2 (08:15→21:29)
[2018-09-07] MEDS: MORPHINE SULFATE 4 MG/ML SYRINGE IV PRN ×3 (08:28→20:59)
[2018-09-07] MEDS: hydrALAZINE HCL 20 MG/ML 1 ML VIAL IVP PRN ×2 (11:22→21:00)
--- NOTE | 2018-09-07 13:19 | P.PN ---
Subjective Progress Note Date: 09/07/18 Principal diagnosis: Hypertensive urgency Objective - Vital Signs Vital signs: Vital Signs Temp 98.1 F 09/07/18 05:13 Pulse 66 09/07/18 05:13 Resp 16 09/07/18 05:13 BP 164/85 09/07/18 05:13 Pulse Ox 97 09/07/18 05:13 Intake & Output 09/06/18 09/07/18 09/07/18 18:59 06:59 18:59 Intake Total 240 Balance 240 Weight 56.69 kg 56.69 kg Intake: IV 240 Sodium Chloride 0.9% 1, 240 000 ml @ 20 mls/hr IV . Q24H [facility] Rx#:[id number] Other: Voiding Method Toilet # Voids 1 - Exam - Constitutional General appearance: average body habitus, mild distress - EENT Eyes: anicteric sclerae, EOMI ENT: normal oropharynx - Neck Neck: no lymphadenopathy - Respiratory Respiratory: bilateral: CTA - Cardiovascular Rhythm: regular Heart sounds: normal: S1, S2 Abnormal Heart Sounds: no systolic murmur, no diastolic murmur, no rub, no S3 Gallop, no S4 Gallop, no click, no other leg Peripheral Edema: bilateral: None - Gastrointestinal General gastrointestinal: no absent bowel sounds, no decreased bowel sounds, no distended, hepatomegaly, no hyperactive bowel sounds, normal bowel sounds, no organomegaly, no rigid, no scaphoid, soft, no splenomegaly, no tenderness, no umbilical hernia, no ventral hernia - Neurologic Neurologic: CNII-XII intact - Musculoskeletal Musculoskeletal: strength equal bilaterally - Psychiatric Psychiatric: A&O x's 3, appropriate affect, intact judgment & insight - Labs CBC & Chem 7: 09/05/18 15:12 09/05/18 15:12 Assessment and Plan Assessment: Intractable nausea and vomiting. Possibly related to chemotherapy Hypertensive urgency Chronic pain/back pain likely cancer related. Recently diagnosed hepatocellular cancer currently maintained on lenvima GERD DVT prophylaxis Plan: Patient will be continued on IV hydration. Symptomatic management for nausea and vomiting. Continue with IV Zantac and Zofran. Patient does take lisinopril at home and hydrochlorothiazide will be added. Catapres patch will be applied at 0.1 mg on telemetry tolerating oral diet. Continue the supportive management and further recommendations based on the clinical course. Anticipate discharge once the blood pressure is fairly controlled. Time with Patient: Greater than 30
[2018-09-07] MEDS: LENVATINIB PO SCH (21:29)
[2018-09-07] MEDS: SENNOSIDES 8.6 MG TAB PO SCH (21:29)
[2018-09-08 07:47] LABS: Basophils % (A) 0 %; Eosinophils # (A) 0.1 k/uL (0-0.7); Eosinophils % (A) 1 %; HCT 51.5 % (39.0-53.0); HGB 16.6 gm/dL (13.0-17.5); Lymphocytes # (A) 0.8 k/uL (1.0-4.8); Lymphocytes % (A) 10 %; MCH 30.2 pg (25.0-35.0); MCHC 32.2 g/dL (31.0-37.0); MCV 93.8 fL (80.0-100.0); Mean Platelet Volume 7.1; Monocytes # (A) 0.3 k/uL (0-1.0); Monocytes % (A) 4 %; Neutrophils # (A) 7.1 k/uL (1.3-7.7); Neutrophils % (A) 84 %; Platelet Count 287 k/uL (150-450); RBC 5.49 m/uL (4.30-5.90); RDW 13.4 % (11.5-15.5); WBC 8.4 k/uL (3.8-10.6)
[2018-09-08 08:08] LABS: Anion Gap 9 mmol/L; Blood Urea Nitrogen 14 mg/dL (9-20); Calcium 9.1 mg/dL (8.4-10.2); Carbon Dioxide 21 mmol/L (22-30); Chloride 109 mmol/L (98-107); Glucose 93 mg/dL (74-99); Potassium 4.4 mmol/L (3.5-5.1); Sodium 139 mmol/L (137-145)
[2018-09-08] MEDS: HYDROCHLOROTHIAZIDE 12.5 MG CAP PO SCH (08:51)
[2018-09-08] MEDS: LOSARTAN 50 MG TAB PO SCH (08:51)
[2018-09-08] MEDS: MORPHINE SULFATE ER 15 MG TABLET PO SCH ×2 (08:52→21:05)
[2018-09-08] MEDS: PANTOPRAZOLE 40 MG/10 ML VIAL IVP SCH (08:52)
[2018-09-08] MEDS: HEPARIN SODIUM,PORCINE 5,000 UNIT/ML 1 ML VIAL SQ SCH ×2 (08:52→16:13)
[2018-09-08] MEDS: amLODIPine 5 MG TAB PO SCH (08:52)
[2018-09-08] MEDS: SODIUM CHLORIDE 0.9% 1,000 ML IV SCH ×2 (08:54→19:37)
--- NOTE | 2018-09-08 13:54 | P.PN ---
Subjective Progress Note Date: 09/08/18 Principal diagnosis: Hypertensive urgency 75-year-old gentleman admitted to the hospital with a urinary tract infection with sepsis. The patient is known to for recurrent superficial bladder cancer. He apparently had a resection in the end of July. The catheter was removed several days later. Apparently he has been having problems urinating and had another catheter. It was removed a few days ago. He developed lethargy fever and chills. He was brought to the emergency room. He is found to have an elevated white count and lactic acidosis and infected looking urine. He was admitted for a urinary tract infection with sepsis. The patient states that he normally does not have problems urinating however he does have Parkinson's and incomplete voiding would probably be common. The patient has not been on any sort of bladder medication. 09/08/2018; Patient seen for follow-up on uncontrolled hypertension; has been started on Catapres patch 0.1 mg; blood pressure is improved but remains elevated; cardiology service is following for improved blood pressure control; we will increase Catapres patch to 0.2 mg and continue to monitor blood pressure closely Objective - Vital Signs Vital signs: Vital Signs Temp 98.2 F 09/08/18 05:00 Pulse 70 09/08/18 05:00 Resp 16 09/08/18 05:00 BP 164/74 09/08/18 05:00 Pulse Ox 97 09/08/18 05:00 Intake & Output 09/07/18 09/08/18 09/08/18 18:59 06:59 18:59 Intake Total 1200 Balance 1200 Intake: Intake, IV Titration 1200 Amount Sodium Chloride 0.9% 1, 1200 000 ml @ 100 mls/hr IV . Q10H [facility] Rx#:[id number] Oral 0 Other: Voiding Method Toilet Toilet Urinal # Voids 2 1 - Exam - Constitutional General appearance: average body habitus, mild distress - EENT Eyes: anicteric sclerae, EOMI ENT: normal oropharynx - Neck Neck: no lymphadenopathy - Respiratory Respiratory: bilateral: CTA - Cardiovascular Rhythm: regular Heart sounds: normal: S1, S2 Abnormal Heart Sounds: no systolic murmur, no diastolic murmur, no rub, no S3 Gallop, no S4 Gallop, no click, no other leg Peripheral Edema: bilateral: None - Gastrointestinal General gastrointestinal: no absent bowel sounds, no decreased bowel sounds, no distended, hepatomegaly, no hyperactive bowel sounds, normal bowel sounds, no organomegaly, no rigid, no scaphoid, soft, no splenomegaly, no tenderness, no umbilical hernia, no ventral hernia - Neurologic Neurologic: CNII-XII intact - Musculoskeletal Musculoskeletal: strength equal bilaterally - Psychiatric Psychiatric: A&O x's 3, appropriate affect, intact judgment & insight - Labs CBC & Chem 7: 09/08/18 07:18 09/08/18 07:18 Labs: Abnormal Lab Results - Last 24 Hours (Table) 09/08/18 09/08/18 Range/Units 07:18 07:18 Lymphocytes # 0.8 L (1.0-4.8) k/uL Chloride 109 H (98-107) mmol/L Carbon Dioxide 21 L (22-30) mmol/L Assessment and Plan Assessment: Intractable nausea and vomiting. Possibly related to chemotherapy Hypertensive urgency Chronic pain/back pain likely cancer related. Recently diagnosed hepatocellular cancer currently maintained on lenvima GERD DVT prophylaxis Plan: Patient will be continued on IV hydration. Symptomatic management for nausea and vomiting. Continue with IV Zantac and Zofran. Patient does take lisinopril at home and hydrochlorothiazide will be added. Catapres patch will be applied at 0.1 mg on telemetry tolerating oral diet. Continue the supportive management and further recommendations based on the clinical course. Anticipate discharge once the blood pressure is fairly controlled. Time with Patient: Greater than 30
[2018-09-08] MEDS ORDERED: cloNIDine 0.2 MG/24HR PATCH TRANSDERM SCH (14:00)
--- NOTE | 2018-09-08 14:32 | P.PN ---
Subjective Progress Note Date: 09/08/18 Principal diagnosis: Uncontrolled hypertension This is a pleasant 63-year-old gentleman with a past medical history significant for hepatic carcinoma, chronic hepatitis C, as well as hypertension who was admitted to the hospital for further evaluation of uncontrolled hypertension. On follow-up with him today, he is asymptomatic and denies having any chest pain or chest discomfort. The blood pressure continues to be not well- controlled on the current medical regimen. I am going to add metoprolol 12.5 mg by mouth twice a day daily to the current medical regimen him a continue the clonidine patch, and continue the hydrochlorothiazide as well as losartan. Objective - Vital Signs Vital signs: Vital Signs Temp 98.2 F 09/08/18 05:00 Pulse 70 09/08/18 05:00 Resp 16 09/08/18 05:00 BP 164/74 09/08/18 05:00 Pulse Ox 97 09/08/18 05:00 Intake & Output 09/07/18 09/08/18 09/08/18 18:59 06:59 18:59 Intake Total 1200 Balance 1200 Intake: Intake, IV Titration 1200 Amount Sodium Chloride 0.9% 1, 1200 000 ml @ 100 mls/hr IV . Q10H [facility] Rx#:[id number] Oral 0 Other: Voiding Method Toilet Toilet Urinal # Voids 2 1 - Constitutional General appearance: Present: no acute distress - Respiratory Respiratory: bilateral: CTA - Cardiovascular Rhythm: regular Heart sounds: normal: S1, S2 - Labs CBC & Chem 7: 09/08/18 07:18 09/08/18 07:18 Labs: Abnormal Lab Results - Last 24 Hours (Table) 09/08/18 09/08/18 Range/Units 07:18 07:18 Lymphocytes # 0.8 L (1.0-4.8) k/uL Chloride 109 H (98-107) mmol/L Carbon Dioxide 21 L (22-30) mmol/L Assessment and Plan Assessment: Assessment #1 hypertension urgency #2 hepatic carcinoma Plan #1 continue the current medical regimen #2 add metoprolol to the current medical regimen
[2018-09-08] MEDS: LENVATINIB PO SCH (20:33)
[2018-09-08] MEDS: METOPROLOL TARTRATE 12.5 MG TAB PO SCH (21:05)
[2018-09-08] MEDS: SENNOSIDES 8.6 MG TAB PO SCH (21:07)
[2018-09-09] MEDS: HEPARIN SODIUM,PORCINE 5,000 UNIT/ML 1 ML VIAL SQ SCH ×2 (00:24→08:05)
[2018-09-09] MEDS: SODIUM CHLORIDE 0.9% 1,000 ML IV SCH ×2 (06:19→14:26)
[2018-09-09] MEDS: HYDROCHLOROTHIAZIDE 12.5 MG CAP PO SCH (08:05)
[2018-09-09] MEDS: PANTOPRAZOLE 40 MG/10 ML VIAL IVP SCH (08:05)
[2018-09-09] MEDS: METOPROLOL TARTRATE 12.5 MG TAB PO SCH (08:05)
[2018-09-09] MEDS: MORPHINE SULFATE ER 15 MG TABLET PO SCH (08:06)
[2018-09-09] MEDS: amLODIPine 5 MG TAB PO SCH (08:06)
[2018-09-09] MEDS: LOSARTAN 50 MG TAB PO SCH (08:06)
[2018-09-09 10:00] LABS: ALT 43 U/L (21-72); AST 60 U/L (17-59); Albumin 2.8 g/dL (3.5-5.0); Alkaline Phosphatase 119 U/L (38-126); Anion Gap 8 mmol/L; Bilirubin, Delta 0.4 mg/dL (0.0-0.2); Bilirubin,Unconjugated 0.1 mg/dL (0.0-1.1); Blood Urea Nitrogen 12 mg/dL (9-20); Calcium 8.9 mg/dL (8.4-10.2); Carbon Dioxide 25 mmol/L (22-30); Chloride 107 mmol/L (98-107); Glucose 137 mg/dL (74-99); Potassium 3.7 mmol/L (3.5-5.1); Sodium 140 mmol/L (137-145); Total Bilirubin 0.5 mg/dL (0.2-1.3); Total Protein 5.6 g/dL (6.3-8.2)
[2018-09-09 13:18] VITALS: BP 122/74; PULSE 58; RESP 18; TEMP 97.7
--- NOTE | 2018-09-09 14:14 | P.PN ---
Subjective Progress Note Date: 09/09/18 Principal diagnosis: Uncontrolled hypertension This is a pleasant 63-year-old gentleman with a past medical history significant for hepatic carcinoma, chronic hepatitis C, as well as hypertension who was admitted to the hospital for further evaluation of uncontrolled hypertension. On follow-up with the patient today, he remains asymptomatic from the cardiovascular standpoint of view on denies having any chest pain or discomfort or shortness of breath. Yesterday I did add metoprolol to the current medical regimen. The blood pressure today seems to be better overall. The heart rate has been on the low side and it has been in the 50s but he is asymptomatic. From a cardiovascular standpoint overview, I recommended continue the current medical regimen. The patient can be discharged home. Objective - Vital Signs Vital signs: Vital Signs Temp 97.7 F 09/09/18 13:00 Pulse 58 L 09/09/18 13:00 Resp 18 09/09/18 13:00 BP 122/74 09/09/18 13:00 Pulse Ox 97 09/09/18 13:00 Intake & Output 09/08/18 09/09/18 09/09/18 18:59 06:59 18:59 Intake Total 800 800 Balance 800 800 Intake: Intake, IV Titration 800 800 Amount Sodium Chloride 0.9% 1, 800 800 000 ml @ 100 mls/hr IV . Q10H [facility] Rx#:[id number] Other: Voiding Method Toilet Toilet Toilet Urinal # Voids 1 - Constitutional General appearance: Present: no acute distress - Respiratory Respiratory: bilateral: CTA - Cardiovascular Rhythm: regular Heart sounds: normal: S1, S2 - Labs CBC & Chem 7: 09/08/18 07:18 09/09/18 08:52 Labs: Abnormal Lab Results - Last 24 Hours (Table) 09/09/18 Range/Units 08:52 Glucose 137 H (74-99) mg/dL Delta Bilirubin 0.4 H (0.0-0.2) mg/dL AST 60 H (17-59) U/L Total Protein 5.6 L (6.3-8.2) g/dL Albumin 2.8 L (3.5-5.0) g/dL Assessment and Plan Assessment: Assessment #1 hypertension urgency #2 hepatic carcinoma Plan #1 continue the current medical regimen #2 the patient can be discharged home. Thank you for allowing us participate in his care
--- NOTE | 2018-10-01 23:59 | P.DS ---
Providers Date of admission: 09/05/18 20:07 Expected date of discharge: 09/09/18 Attending physician: Padma Morales Consults: 09/05/18 20:09 Consult Physician Urgent Consulting Provider: Mikie Fuentes Consult Reason/Comments: Oncological care Do you want consulting provider notified?: Yes Consult Physician Urgent Consulting Provider: Yonatan Mitchell Consult Reason/Comments: htn Do you want consulting provider notified?: Yes 09/06/18 11:37 Consult Physician Urgent Consulting Provider: Bassem Barnard Consult Reason/Comments: Hepatocellular CA; N/V Do you want consulting provider notified?: Yes Primary care physician: Blaire Elarlo Hospital Course: 75-year-old gentleman admitted to the hospital with a urinary tract infection with sepsis. The patient is known to for recurrent superficial bladder cancer. He apparently had a resection in the end of July. The catheter was removed several days later. Apparently he has been having problems urinating and had another catheter. It was removed a few days ago. He developed lethargy fever and chills. He was brought to the emergency room. He is found to have an elevated white count and lactic acidosis and infected looking urine. He was admitted for a urinary tract infection with sepsis. The patient states that he normally does not have problems urinating however he does have Parkinson's and incomplete voiding would probably be common. The patient has not been on any sort of bladder medication. 09/08/2018; Patient seen for follow-up on uncontrolled hypertension; has been Intractable nausea and vomiting. Possibly related to chemotherapy Hypertensive urgency Chronic pain/back pain likely cancer related. Recently diagnosed hepatocellular cancer currently maintained on lenvima GERD DVT prophylaxis Plan: Patient will be continued on IV hydration. Symptomatic management for nausea and vomiting. Continue with IV Zantac and Zofran. Patient does take lisinopril at home and hydrochlorothiazide will be added. Catapres patch will be applied at 0.1 mg on telemetry tolerating oral diet. Continue the supportive management and further recommendations based on the clinical course. Anticipate discharge once the blood pressure is fairly controlled.started on Catapres patch 0.1 mg; blood pressure is improved but remains elevated; cardiology service is following for improved blood pressure control; we will increase Catapres patch to 0.2 mg and continue to monitor blood pressure closely Plan - Discharge Summary Discharge Rx Participant: Yes New Discharge Prescriptions: New amLODIPine [Norvasc] 5 mg PO DAILY #30 tab cloNIDine 0.2 MG/24HR PATCH [Catapres-TTS] 1 patch TRANSDERM Q7D 30 Days #4 patch Hydrochlorothiazide [Hydrodiuril] 12.5 mg PO DAILY #30 cap Metoprolol Tartrate [Lopressor] 12.5 mg PO BID #30 tab Continue Ranitidine HCl 150 mg PO BID Morphine Sulfate ER [Ms Contin] 15 mg PO Q12HR PRN PRN Reason: Pain HYDROmorphone [Dilaudid] 2 mg PO Q3H PRN PRN Reason: Pain Sennosides [Senna] 25.8 mg PO HS Prochlorperazine [Compazine] 10 mg PO Q6H PRN PRN Reason: Nausea Lenvatinib Mesylate [Lenvima] 16 mg PO HS Losartan Potassium [Cozaar] 100 mg PO DAILY Discharge Medication List Ranitidine HCl 150 mg PO BID 08/08/18 [History] HYDROmorphone [Dilaudid] 2 mg PO Q3H PRN 09/05/18 [History] Lenvatinib Mesylate [Lenvima] 16 mg PO HS 09/05/18 [History] Losartan Potassium [Cozaar] 100 mg PO DAILY 09/05/18 [History] Morphine Sulfate ER [Ms Contin] 15 mg PO Q12HR PRN 09/05/18 [History] Prochlorperazine [Compazine] 10 mg PO Q6H PRN 09/05/18 [History] Sennosides [Senna] 25.8 mg PO HS 09/05/18 [History] Hydrochlorothiazide [Hydrodiuril] 12.5 mg PO DAILY #30 cap 09/09/18 [Rx] Metoprolol Tartrate [Lopressor] 12.5 mg PO BID #30 tab 09/09/18 [Rx] amLODIPine [Norvasc] 5 mg PO DAILY #30 tab 09/09/18 [Rx] cloNIDine 0.2 MG/24HR PATCH [Catapres-TTS] 1 patch TRANSDERM Q7D 30 Days #4 patch 09/09/18 [Rx] Follow up Appointment(s)/Referral(s): Clyde Ding DO [STAFF PHYSICIAN] - 1 Week Blaire Garcia DO [Primary Care Provider] - 1 Week (After discharge from subacute rehab) Marcell Caldwell MD [Family Provider] - 09/12/18 1:15 pm Patient Instructions/Handouts: Metoprolol (By mouth), Hydrochlorothiazide (By mouth), Amlodipine (By mouth), Clonidine (Absorbed through the skin), Heart Healthy Diet (DC), Hypertensive Crisis (DC) Activity/Diet/Wound Care/Special Instructions: HOLD LENVIMA UNTIL SEEN BY DR. CALDWELL Discharge Disposition: HOME SELF-CARE
== END 2018-09-09 16:04 | disposition home or self-care (01) | DRG 305 ==
LOC: EC 14:19 → 3NMEDONC 20:07
PROVIDERS: ADMIT Internal Medicine; ATTEND Internal Medicine
DX: I16.0 Hypertensive urgency (principal); C22.0 Liver cell carcinoma; T45.1X5A Adverse effect of antineoplastic and immunosuppressive drugs, initial encounter; R11.2 Nausea with vomiting, unspecified; B18.2 Chronic viral hepatitis C; Z88.6 Allergy status to analgesic agent; R51 Headache; K21.9 Gastro-esophageal reflux disease without esophagitis; G89.3 Neoplasm related pain (acute) (chronic); J84.10 Pulmonary fibrosis, unspecified; M54.9 Dorsalgia, unspecified; F10.11 Alcohol abuse, in remission; Z79.899 Other long term (current) drug therapy; Z80.7 Family history of other malignant neoplasms of lymphoid, hematopoietic and related tissues; Z87.891 Personal history of nicotine dependence
CPT/HCPCS: 36415; 71046; 74019; 80048; 80053; 80076; 83690; 83735; 84439; 84443; 84481; 85025; 85610; 85730; 96374; 96375; 96376; 99285

== ENCOUNTER → 2018-11-24 | Outpatient (CLI) | payer MEDICARE | LOC: RADMRIMAIN 13:27 | PROVIDERS: ATTEND Internal Medicine Hematology & Oncology | DX: Z53.9 Procedure and treatment not carried out, unspecified reason (principal) ==